=== PATIENT | female | born 1985 | race Caucasian/White ===

== ENCOUNTER 2017-12-16 15:10 | Observation (INO) | payer OTHER ==
[~2017-12-16] VITALS: Ht 165.1 cm; Wt 74.4 kg
[2017-12-16 15:27] VITALS: BP 107/67
[2017-12-16] MEDS ORDERED: PREN27TA7 OR (16:43)
== END 2017-12-16 15:45 | disposition home or self-care (01) | DRG 781 ==
LOC: EDBD 15:10 → ER 15:10 → LDRP 15:11 → ER 16:12
PROVIDERS: ADMIT Obstetrics & Gynecology; ATTEND Obstetrics & Gynecology
DX: O26.893 Other specified pregnancy related conditions, third trimester (principal); R10.9 Unspecified abdominal pain; M79.605 Pain in left leg; M79.652 Pain in left thigh; Z3A.36 36 weeks gestation of pregnancy; V89.2XXA Person injured in unspecified motor-vehicle accident, traffic, initial encounter; Y92.410 Unspecified street and highway as the place of occurrence of the external cause; Y93.89 Activity, other specified; Y99.8 Other external cause status
CPT/HCPCS: 59025; 76815; 81002; 99285; G0378